=== PATIENT | male | born 1950 | race Caucasian/White ===

== ENCOUNTER 2024-10-06 13:36 | Emergency (ER) | payer MEDICARE, OTHER, SELFPAY ==
[2024-10-06 13:46] VITALS: BP 147/96; PULSE 81; TEMP 36.6; O2SAT 95; BMI 36.9
--- NOTE | 2024-10-06 13:55 | XR_ITS ---
The [address] [address] Patient Name: AMBROSE SO MRN: [id number] date: 1950 Sex: M Assigned Patient Location: ER Current Patient Location: ER Accession/Order Number: [id number] Exam Date: 10/06/2024 14:45 Report Date: 10/06/2024 14:49 At the request of: JENNI ABARCA MD Procedure: XR hip RT 2V w/ pelvis 3 views right shoulder plain film HISTORY: Fell. Right hip and right shoulder pain COMPARISON: None ACUTE FINDINGS: Nondisplaced humeral neck fracture present. DEGENERATIVE CHANGE: Chronic deformity of humeral head. Possible old trauma versus AVN. Extensive degenerative changes of glenohumeral joint. Intra-articular body. SOFT TISSUE FINDINGS: Unremarkable JOINT EFFUSION: None POSTOP CHANGES: None BONY MINERALIZATION: Adequate XR/XR shoulder RT min 2V IMPRESSION: Nondisplaced humeral neck fracture. 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 2 views right hip a single view pelvis Extensive lumbar degeneration. Mild SI joint degeneration. Mild bilateral hip degeneration. No acute displaced fracture. Spurring of greater trochanters. IMPRESSION: No acute displaced fracture. Impression dictated by: Jose Roberto Hurtado M.D. 10/06/2024 2:49 PM Dictation Location[facility] Electronically authenticated by: [id number] Y Date: 10/06/2024 14:49
--- NOTE | 2024-10-06 14:00 | XR_ITS ---
[address] [address] Patient Name: AMBROSE SO MRN: [id number] date: 1950 Sex: M Assigned Patient Location: ER Current Patient Location: ER Accession/Order Number: [id number] Exam Date: 10/06/2024 14:45 Report Date: 10/06/2024 14:49 At the request of: JENNI ABARCA MD Procedure: XR hip RT 2V w/ pelvis 3 views right shoulder plain film HISTORY: Fell. Right hip and right shoulder pain COMPARISON: None ACUTE FINDINGS: Nondisplaced humeral neck fracture present. DEGENERATIVE CHANGE: Chronic deformity of humeral head. Possible old trauma versus AVN. Extensive degenerative changes of glenohumeral joint. Intra-articular body. SOFT TISSUE FINDINGS: Unremarkable JOINT EFFUSION: None POSTOP CHANGES: None BONY MINERALIZATION: Adequate XR/XR hip RT 2V w/ pelvis IMPRESSION: Nondisplaced humeral neck fracture. 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 2 views right hip a single view pelvis Extensive lumbar degeneration. Mild SI joint degeneration. Mild bilateral hip degeneration. No acute displaced fracture. Spurring of greater trochanters. IMPRESSION: No acute displaced fracture. Impression dictated by: Jose Roberto Hurtado M.D. 10/06/2024 2:49 PM [facility]ictation [facility] Electronically authenticated by: [id number] Y Date: 10/06/2024 14:49
--- NOTE | 2024-10-06 14:16 | XR_ITS ---
[address] [address] Patient Name: AMBROSE SO MRN: [id number] date: 1950 Sex: M Assigned Patient Location: ER Current Patient Location: ER Accession/Order Number: [id number] Exam Date: 10/06/2024 15:11 Report Date: 10/06/2024 15:12 At the request of: JENNI ABARCA MD Procedure: XR humerus RT Single view right humerus plain film COMPARISON: None HISTORY: Fell injuring right arm Acute findings: Humeral neck fracture. No additional fracture. Degenerative change: Unremarkable Soft tissue findings: Unremarkable Joint effusion: None Postop changes: None XR/XR humerus RT IMPRESSION:No additional fracture with single view. Impression dictated by: Jose Roberto Hurtado M.D. 10/06/2024 3:12 PM Dictation Location: [place] [address] Electronically authenticated by: [id number] Y Date: 10/06/2024 15:12
[2024-10-06] MEDS: OXYCODONE HCL/ACETAMINOPHEN 5MG/325MG 1 TAB PO (14:38)
[2024-10-06] MEDS: KETOROLAC TROMETHAMINE 30 MG/ML VIAL IM (14:39)
[2024-10-06 14:45] VITALS: PULSE 72
--- NOTE | 2024-10-06 16:12 | ED_ITS ---
HPI HPI - Extremity Injury (Upper) General Chief Complaint: Extremity Injury, Upper Stated Complaint: RIGHT SIDE HIP AND SHOULDER PAIN Time Seen by Provider: 10/06/24 13:55 Source: patient Mode of arrival: walk-in Limitations: no limitations History of Present Illness HPI narrative: The patient is coming to the ER after he fell off the last step at home, while getting out of the house, the patient fell on his right shoulder there is no other complaint of head injury or loss of consciousness, the patient did complain of right hip pain that is mild but he is more concerned about his letty ulder Other concerns the patient have a history of rotator cuff injury before Related Data Previous Rx's ?Medication ?Instructions ?Recorded diclofenac sodium 50 mg 50 mg PO Q12H PRN pain #20 t abs 10/06/24 tablet,delayed release oxycodone-acetaminophen 5 mg-325 1 tab PO Q8H PRN pain #9 tabs 10/06/24 mg tablet (Percocet) Allergies Allergy/AdvReac Type Severity Reaction Status Date / Time No Known Drug Allergies Allergy Verified 10/06/24 13:42 Opioid HPI Opioid Management Most Recent Pain and Opioid Data: Last Pain Scale 5 Today, 14:39 Last MAR Pain Assessment Today, 14:38 Review of Systems ROS Status of ROS 10 or more systems reviewed and unremark able except as noted in history and below PFSH PFSH Social History Little interest or pleasure in doing things: not at all Feeling down, depressed, or hopeless: not at all Exam Narrative Exam Narrative: Nurses notes and vital signs reviewed and patient is not hypoxic. General: Well-appearing and in no apparent distress. Skin: Warm, dry, no pallor noted. No rash. Head: Normocephalic, atraumatic. Right upper extremity: The patient have limitation of movement of the right shoulder although the patient still has full range of movement in the right elbow and right wrist there is no vascular injury detected and the patient have no sensory loss The patient have a limited movement of the shoulder due to pain Constitutional Vital Signs, click to edit/add: Last Vital Signs Temp 97.8 F 10/06/24 13:46 Pulse 72 10/06/24 14:45 Resp 20 10/06/24 13:46 BP 147/96 H 10/06/24 13:46 Pulse Ox 95 10/06/24 13:46 O2 Del Method Room Air 10/06/24 13:46 Course Vital Signs Vital signs: Vital Signs Temperature 97.8 F 10/06/24 13:46 Pulse Rate 81 10/06/24 13:46 Respiratory Rate 20 10/06/24 13:46 Blood Pressure 147/96 H 10/06/24 13:46 Pulse Oximetry 95 10/06/24 13:46 Oxygen Delivery Method Room Air 10/06/24 13:46 Temperature 97.8 F 10/06/24 13:46 Pulse Rate 72 10/06/24 14:45 Respiratory Rate 20 10/06/24 13:46 Blood Pressure 147/96 H 10/06/24 13:46 Pulse Oximetry 95 10/06/24 13:46 Oxygen Delivery Method Room Air 10/06/24 13:46 MDM - Extremity Injury (Upper) MDM Narrative Medical decision making narrative: X-ray of the patient's right hip showed no acute pathology and the patient x-ray of the right shoulder showed that he had proximal humeral neck fracture nondisplaced The patient was placed in the sling The humerus x-ray showed no acute pathology Patient started on Toradol and Percocet in the ER discharged home with Voltaren and Percocet Patient referred to orthopedic as outpatient on October 08 at 10:45 AM Patient instructed about monitoring for any symptoms of numbness tingling or any other concerns in the hand to come back to the ER The patient is to follow up with primary care physician in next 2-3 days or to return to the emergency department should any of the signs or symptoms worsen or new symptoms develop. The patient agrees with the following Diagnosis and Treatment plan and the patient will be discharged home. Discharge Plan Discharge Chief Complaint: Extremity Injury, Upper Clinical Impression: Fracture of proximal end of humerus Patient Disposition: Home, Self-Care Time of Disposition Decision: 16:13 Condition: Good Prescriptions / Home Meds: New oxycodone-acetaminophen [Percocet] 5-325 mg tablet 1 tab PO Q8H PRN (Reason: pain) Qty: 9 0RF diclofenac sodium 50 mg tablet,delayed release (DR/EC) 50 mg PO Q12H PRN (Reason: pain) Qty: 20 0RF Print Language: Salvadorean Instructions: Arm Fracture in Adults (ED) Referrals: GRICELDA ELKINS NP [Primary Care Provider] - 1 week Marlon Aguilar MD [Physician, Orthopedics] - 10/08/24 10:45 am Referral Note: please 10 : [address] Aguilar office
[2024-10-06 16:31] VITALS: BP 153/94; PULSE 79; TEMP 36.8; O2SAT 95
== END 2024-10-06 16:34 | disposition home or self-care (01) ==
PROVIDERS: Emergency Provider Emergency Medicine; PCP Nurse Practitioner Family
DX: S42.294A Other nondisplaced fracture of upper end of right humerus, initial encounter for closed fracture (principal); M25.511 Pain in right shoulder; M25.551 Pain in right hip; W10.9XXA Fall (on) (from) unspecified stairs and steps, initial encounter
CPT/HCPCS: 73030; 73060; 73502; 96372; 99285; J1885